=== PATIENT | female | born 1985 | race Caucasian/White ===

== ENCOUNTER 2018-04-11 10:24 | Emergency (ER) | END 2018-04-11 12:53 | disposition home or self-care (01) ==

== ENCOUNTER 2019-03-24 03:39 | Emergency (ER) | payer OTHER ==
[~2019-03-24] VITALS: Ht 154.9 cm; Wt 51.2 kg
[~2019-03-24 03:39] MED LIST: BEN25 PO; CEPH-443 PO; LIDO40SO8 TOP; METR500T PO
[2019-03-24 03:42] VITALS: BP 131/69; PULSE 87; RESP 18; Ht 154.9 cm; Wt 51.2 kg
[2019-03-24] MEDS ORDERED: ONDANSETRON (ODT) 4 MG TAB ODT STA (03:55)
[2019-03-24] MEDS ORDERED: CEFTRIAXONE 250 MG INJ IM ONE (04:00)
[2019-03-24] MEDS ORDERED: AZITHROMYCIN 500 MG TAB PO ONE (04:00)
--- NOTE | 2019-03-24 04:29 | ERD ---
ER Documentation Chief Complaint Chief Complaint STATES UNPROTECTED SEX 3 DAYS AGO, VAGINAL DISCHARGE TODAY HPI Patient is a 33-year-old female with no medical problems who presents with va ginal discharge. She said that she had unprotected sex 3 days ago. She feels pain when her bladder is full. She says "I just do not feel right". She has no fevers. She has mild burning with urination. She noticed a clear liquid vaginal discharge today which is why she came to the emergency department. She denies rash. She is concerned for possible sexually transmitted disease. Upon review of old medical records this is the patient's third visit to the ER since 2018. She does not currently have a primary doctor. ROS All systems reviewed and are negative except as per history of present illness. Medications Home Meds Active Scripts Lidocaine 4% Topical (Lidocaine HCl) 4%-50 Ml Soln, 1 APPLIC TOP ONCE, #1 TUB Prov:PIERRE LORENZ PA-C 09/18/18 Cephalexin* (Keflex*) 500 Mg Capsule, 500 MG PO QID for 7 Days, CAP Prov:DAREN FOUNTAIN PA-C 04/11/18 Metronidazole* (Flagyl*) 500 Mg Tablet, 500 MG PO TID for 7 Days, TAB Prov:DAREN FOUNTAIN PA-C 04/11/18 Diphenhydramine Hcl* (Benadryl*) 25 Mg Cap, 25 MG PO Q6, #30 CAP Prov:DAREN FOUNTAIN PA-C 04/11/18 Allergies Allergies: Coded Allergies: No Known Allergy (Unverified , 04/11/18) PMhx/Soc Medical and Surgical Hx: pt denies Medical Hx, pt denies Surgical Hx Hx Substance Use: Yes (marijuana, meth) Hx Tobacco Use: Yes Smoking Status: Current every day smoker FmHx Family History: No diabetes Physical Exam Vitals Vital Signs Date Temp Pulse Resp B/P (MAP) Pulse Ox O2 O2 Flow FiO2 Time Delivery Rate 03/24/19 97.2 87 18 131/69 100 03:42 (89) Physical Exam Const: No acute distress Head: Atraumatic Eyes: Normal Conjunctiva ENT: Normal External Ears, Nose and Mouth. Neck: Full range of motion. No meningismus. Resp: Clear to auscultation bilaterally Cardio: Regular rate and rhythm, no murmurs Abd: Soft, non tender, non distended. Normal bowel sounds Skin: No petechiae or rashes Back: No midline or flank tenderness Ext: No cyanosis, or edema Neur: Awake and alert Psych: Normal Mood and Affect Results 24 hrs Laboratory Tests Test 03/24/19 04:07 03/24/19 04:09 POC Beta HCG, Qualitative NEGATIVE Bedside Urine pH (LAB) 7.0 Bedside Urine Protein (LAB) 1+ Bedside Urine Glucose (UA) Negative Bedside Urine Ketones (LAB) Trace Bedside Urine Blood Trace-intact Bedside Urine Nitrite (LAB) Negative Bedside Urine Leukocyte Esterase (L 1+ Current Medications Medications Dose Sig/Sawyer Start Time Status Last (Trade) Ordered Route PRN Stop Time Admin Dose Reason Admin Ceftriaxone 250 mg ONCE ONCE 03/24/19 DC 03/24/19 Sodium IM 04:00 03/24/19 04:06 (Rocephin) 04:01 1,000 mg ONCE ONCE 03/24/19 DC 03/24/19 Azithromycin PO 04:00 03/24/19 04:05 (Zithromax) 04:01 Ondansetron 4 mg ONCE STAT 03/24/19 DC 03/24/19 HCl (Zofran ODT 03:55 03/24/19 04:04 Odt) 03:58 Procedures/MDM Patient is a 33-year-old female presents with vaginal discharge and recent unprotected sex. The patient has symptoms consistent with a possible STD and I will treat her with empiric treatment with ceftriaxone 250 mg IM and Zithromax 1 g p.o. Urine dip shows no obvious cystitis at this time. The patient will have a urinary GC and chlamydia test sent to the lab as well. We do not do HIV testing here at the hospital. She will need to follow-up with her primary doctor at the local clinics within 1 week. She can return for any worsening symptoms. I did psychologist counseling her regarding safe sex practices and smoking cessation. Smoking Cessation Therapy: Pt. was lectured for greater than 3 minutes on the health risks of continued smoking and the benefits of cessation. Departure Diagnosis: Primary Impression: STD (female) Additional Impression: Disorder of female genital organ Condition: Fair Patient Instructions: Understanding STDs Referrals: [facility] CL[facility] YOU HAVE RECEIVED A MEDICAL SCREENING EXAM AND THE RESULTS INDICATE THAT YOU DO NOT HAVE A CONDITION THAT REQUIRES URGENT TREATMENT IN THE EMERGENCY DEPARTMENT. FURTHER EVALUATION AND TREATMENT OF YOUR CONDITION CAN WAIT UNTIL YOU ARE SEEN IN YOUR DOCTORS OFFICE WITHIN THE NEXT 1-2 DAYS. IT IS YOUR RESPONSIBILITY TO MAKE AN APPOINTMENT FOR FOLOW-UP CARE. IF YOU HAVE A PRIMARY DOCTOR --you should call your primary doctor and schedule an appointment IF YOU DO NOT HAVE A PRIMARY DOCTOR YOU CAN CALL OUR PHYSICIAN REFERRAL HOTLINE AT IF YOU CAN NOT AFFORD TO SEE A PHYSICIAN YOU CAN CHOSE FROM THE FOLLOWING [facility]ATRIC HOSP[facility] CLINICS [facility] [address] [facility] [address] [facility] [address] [facility] [address] [facility] [address] [facility] [facility]. [address] Additional Instructions: Call your primary care doctor TOMORROW for an appointment during the next 1 WEEK.Tell the legal administrative secretary that you were referred from this facility.See the doctor sooner or return here if your condition worsens before your appointment time. KEMI VELÁSQUEZ MD Mar 24, 2019 04:29
== END 2019-03-24 04:38 | disposition home or self-care (01) ==
LOC: FTE 03:39
DX: A64 Unspecified sexually transmitted disease (principal); F17.210 Nicotine dependence, cigarettes, uncomplicated
CPT/HCPCS: 81003; 81025; 87591; 96372; J0696; Z7502; Z7610